=== PATIENT | male | born 1965 | race Hispanic/Latino ===

== ENCOUNTER 2017-11-19 01:51 | Observation (INO) | payer MEDICAID ==
[2017-11-19] MEDS ORDERED: Nitroglycerin 2% Ointment 1 INCH/1 GM Packet ONE (02:00)
[2017-11-19 02:20] LABS: #Basophils 0.1 thou/uL (0.0-0.2); #Eosinphils 0.1 thou/uL (0.0-0.7); #Lymphocytes 1.4 thou/uL (1.20-3.40); #Monocytes 0.3 thou/uL (0.11-0.59); #Neutrophils 1.2 thou/uL (1.40-6.50); %Basophils 1.7 % (0.0-1.0); %Eosinophils 2.5 % (0.0-10.0); %Lymphocytes 46.5 % (21.0-51.0); %Monocytes 8.7 % (0.0-10.0); %Neutrophils 40.6 % (42.0-75.0); Hemoglobin 14.3 g/dL (14.0-18.0); Mean Corpuscular HGB CONC 35.5 g/dL (32.0-36.0); Mean Corpuscular Hemoglobin 33.8 pg (27.0-31.0); Mean Corpuscular Volume 95.4 fl (80.0-94.0); Mean Platelet Volume 8.1 fL (7.4-10.4); Platelet Count 159 thou/uL (130-400); RBC Distribution Width 12.1 % (11.5-14.5); Red Blood Cell (RBC) Count 4.23 mill/uL (4.70-6.10)
[2017-11-19 02:41] LABS: ALT (SGPT) 15 U/L (8-55); AST (SGOT) 18 U/L (5-34); Albumin 4.6 g/dL (3.5-5.0); Alkaline Phosphatase 69 U/L (40-150); Anion Gap 14 mmol/L (10-20); BUN (Urea Nitrogen) 18 mg/dL (8.4-25.7); Bilirubin, Total 2.4 mg/dL (0.2-1.2); Calc. Creatinine Clearance 0 mL/min (70-130); Calcium 9.7 mg/dL (7.8-10.44); Carbon Dioxide 24 mmol/L (22-29); Chloride 106 mmol/L (98-107); Estimated GFR-MDRD 60; Globulin 2.3 g/dL (2.4-3.5); Glucose 142 mg/dL (70-105); Potassium 3.8 mmol/L (3.5-5.1); Protein, Total 6.9 g/dL (6.0-8.3); Sodium 140 mmol/L (136-145)
[2017-11-19 02:44] LABS: CKMB 4.2 ng/mL (0-6.6); Troponin I Less than 0.010 ng/mL (< 0.028)
--- NOTE | 2017-11-19 03:45 | PDOC.FPRHP ---
- History of Present Illness Chief Complaint: chest pain History of Present Illness: 52 yo M w/ PMH of [place] 1-2 years ago & pacemaker comes in for evaluation of chest pain. Patient states he woke up to go to the bathroom and left sided stabbing chest pain developed. It did not radiate, lasted for about 30 minutes and was not associated with diaphoresis. The nothing specific made the pain better or worse. He states the pain feels like the pain he had during his [place]. Patient states he has not taken any of his medications for a few months because of having trouble being seen at the doctor's office. The only medication he remembers taking is plavix. He is in town visiting a friend, he lives in [place]. ED Course: EKG- Ventricular paced trop- negative x1 nitro gel - Allergies/Adverse Reactions Allergies Allergy/AdvReac Type Severity Reaction Status Date / Time No Known Allergies Allergy Verified 11/19/17 04:10 - History PMHx: [place] 1-2 years ago PSHx: pacemaker, cath FHx: father with heart disease in his 40s Social: no smoking, alcohol, or drugs - Review of Systems General: denies: fever/chills, night sweats, fatigue ENT: denies: nasal congestion, rhinorrhea Respiratory: reports: shortness of breath (was SOB during the episode). denies : cough, congestion Cardiovascular: reports: chest pain. denies: palpitation, edema, orthopnea Gastrointestinal: denies: nausea, vomiting, diarrhea, abdominal pain, GI bleeding Genitourinary: denies: dysuria Skin: denies: rashes, itching Musculoskeletal: denies: pain, arthritis/arthralgias Neurological: denies: numbness, weakness Psychological: denies: anxiety, depression - Vital signs BP: 115/80 HR: 83 RR: 18 Tmax: 98.4 Pox: 98% on ra Wt: 75kg - Physical Exam Constitutional: NAD, awake, alert and oriented HEENT: normocephalic and atraumatic, PERRLA, EOMI Neck: supple Heart: RRR, normal S1/S2, other (pacemaker) Lungs: CTAB, no respiratory distress, good air movement Abdomen: soft, non-tender, bowel sounds present Musculoskeletal: normal structure, ROM grossly normal Neurological: no focal deficit, CN II-XII intact Skin: no rash/lesions, capillary refill <2 seconds FMR H&P: Results - Labs Result Diagrams: 11/19/17 02:11 11/19/17 02:11 Lab results: WBC 3.0 thou/uL (4.8-10.8) L 11/19/17 02:11 Hgb 14.3 g/dL (14.0-18.0) 11/19/17 02:11 Hct 40.3 % (42.0-52.0) L 11/19/17 02:11 MCV 95.4 fl (80.0-94.0) H 11/19/17 02:11 Plt Count 159 thou/uL (130-400) 11/19/17 02:11 Neutrophils % 40.6 % (42.0-75.0) L 11/19/17 02:11 Sodium 140 mmol/L (136-145) 11/19/17 02:11 Potassium 3.8 mmol/L (3.5-5.1) 11/19/17 02:11 Chloride 106 mmol/L (98-107) 11/19/17 02:11 Carbon Dioxide 24 mmol/L (22-29) 11/19/17 02:11 BUN 18 mg/dL (8.4-25.7) 11/19/17 02:11 Creatinine 1.25 mg/dL (0.6-1.3) 11/19/17 02:11 Glucose 142 mg/dL (70-105) H 11/19/17 02:11 Calcium 9.7 mg/dL (7.8-10.44) 11/19/17 02:11 Total Bilirubin 2.4 mg/dL (0.2-1.2) H 11/19/17 02:11 AST 18 U/L (5-34) 11/19/17 02:11 ALT 15 U/L (8-55) 11/19/17 02:11 Alkaline Phosphatase 69 U/L (40-150) 11/19/17 02:11 CK-MB (CK-2) 4.2 ng/mL (0-6.6) 11/19/17 02:11 Serum Total Protein 6.9 g/dL (6.0-8.3) 11/19/17 02:11 Albumin 4.6 g/dL (3.5-5.0) 11/19/17 02:11 FMR H&P: A/P - Problem List (1) Chest pain, rule out acute myocardial infarction Current Visit: Yes Status: Acute Code(s): R07.9 - CHEST PAIN, UNSPECIFIED (2) HTN (hypertension) Current Visit: Yes Status: Acute Code(s): I10 - ESSENTIAL (PRIMARY) HYPERTENSION (3) HLD (hyperlipidemia) Current Visit: Yes Status: Acute Code(s): E78.5 - HYPERLIPIDEMIA, UNSPECIFIED (4) Pacemaker Current Visit: Yes Status: Acute Code(s): Z95.0 - PRESENCE OF CARDIAC PACEMAKER - Plan # Chest pain, r/o myocardial ischemia - [place] 1-2 years ago, pacemaker at that time - lisinopril, atorvastatin - stress test 1100 - consult cards - held plavix, BB 2/2 stress vs cath # HTN - lisinopril - hydralazine PRN - high BP in ED # HLD - atorvastatin - check FLP Fluids: NS at 100 ml/hr Diet: NPO Code: full Dispo: <48 hours FMR H&P: Upper Level - Pertinent history 52 yo M with PMH significant for CAD s/p [place] and pacemaker placement, HTN presents to ER with worsening chest pain. States pain is L-sided, substernal in nature, nonradiating. Describes associated SOB with episodes of pain, which remind of when he had his [place] 1-2 years ago. No N/V, diaphoresis, dizziness, lightheadedness. States he ran out of all of his medications a few months ago, only one that he remembers by name is plavix. - Pertinent findings PE: T: 98.4 P: 83 BP: 115/89 RR: 18 98% on RA Gen: [place] male in NAD HEENT: PERRL, EOMI, MMM, no lymphadenopathy or thyromegaly CV: RRR no murmurs, distal pulses intact Pulm: CTAB, no wheezes or rhonchi Abd: soft, NT/ND, BS present, no masses Ext: no cyanosis or edema MSK: SHARIF well, no joint or muscle pain or swelling Neuro: CN 2-12 intact, normal sensation Skin: no rashes or lesions Psych: A&O x3, appropriate in conversation - Plan Date/Time: 11/19/17 0345 52 yo M here with chest pain. 1) Stable angina: Obs on telemetry. Continue to trend cardiac enzymes. EKG shows V-paced rhythm. Consider consulting Cardiology in AM vs stress as he states he had an [place] with pacemaker placed between 1-2 years ago. Restart on ASA and plavix, statin. Hold BB until decision made about stress test. 2) CAD: ASA, statin. Start on ACEi. 3) HTN: As above. I, [Mohinder Wahl], have evaluated this patient and agree with findings/plan as outlined by internet marketing strategist resident. Pertinent changes/additions are listed here.
[2017-11-19] MEDS ORDERED: Enoxaparin Sodium 40 MG/0.4 ML SYRINGE SC SCH (04:12)
[2017-11-19] MEDS ORDERED: Acetaminophen 325 MG TAB PO PRN (04:12)
[2017-11-19] MEDS ORDERED: hydrALAZINE 20 MG/ML VIAL SLOW IVP PRN (04:12)
[2017-11-19] MEDS ORDERED: Ondansetron ODT 4 MG TAB PO PRN (04:12)
[2017-11-19] MEDS ORDERED: Nitroglycerin 0.4 MG TAB (25 Tab Bottle) PO PRN (04:12)
[2017-11-19 04:15] VITALS: BMI 24.8
[2017-11-19] MEDS: Sodium Chloride 0.9% 1,000 ML IV SCH ×2 (04:37→14:40)
[2017-11-19 05:47] LABS: Troponin I Less than 0.010 ng/mL (< 0.028)
[2017-11-19 06:09] LABS: Cardiac Risk 2.8 (Less than 4.5)
--- NOTE | 2017-11-19 08:06 | RAD ---
CHEST 1 VIEW: HISTORY: A 52-year-old male with a history of chest pain, primarily upper left chest. FINDINGS: Left ICD. Monitor leads overlie the chest. Heart size is within normal limits. The lungs are clear of acute process. IMPRESSION: No acute intrathoracic disease. Left ICD. Atherosclerosis of the aorta. POS: NOELLEH
[2017-11-19 09:00] LABS: Troponin I Less than 0.010 ng/mL (< 0.028)
[2017-11-19] MEDS ORDERED: Lisinopril 5 MG TAB PO SCH (09:00)
--- NOTE | 2017-11-19 11:13 | HP ---
I have discussed this case with Dr. Robert Macias. I agree with his assessment and plan. Mr. Jerez is a 52-year-old black male patient with a history of PA and pacemaker, who came in for ch est pain. He awoke to go to the bathroom and developed left-sided stabbing chest pain. It lasted ab out 30 minutes and was unassociated with diaphoresis or shortness of breath. It did, however, feel l yo the pain he had had with his previous PA. He was evaluated in the ER and admitted for further ev aluation. He is currently visiting from [place], [place]. PHYSICAL EXAMINATION: GENERAL: He is awake and alert, in no distress. VITAL SIGNS: His blood pressure is 120/78, his heart rate is 80, respirations 18. He is afebrile. His room air pulse ox is 98%. EARS, NOSE, AND THROAT: No erythema or exudate. CARDIAC: Heart rhythm regular, no gallop or murmur noted. LUNGS: Clear, without rales or wheezes. ABDOMEN: Flat, soft. No guarding, rebound or rigidity. EXTREMITIES: No edema. NEUROLOGIC: No focal deficits. LABORATORY DATA: His CBC shows a white count of 3000, hemoglobin 14.3, hematocrit 40.3 with an MCV o f 95. He has a normal differential. Chemistries: Sodium 140, potassium 3.8, chloride 106, bicarbon ate 24, glucose 142. Total bilirubin slightly elevated at 2.4. Cholesterol was 175, LDL is 97, HDL is 63. Troponins are less than 0.010 x3. EKG, no acute ischemic changes. ASSESSMENT: Chest pain. PLAN: Stress Myoview, proceed based on findings.
--- NOTE | 2017-11-19 15:08 | NM ---
CARDIAC SPECT: CLINICAL HISTORY: 52-year-old male with chest pain, coronary artery disease, hypertension, diabetes, and dyslipidemia. TECHNIQUE: A myocardial perfusion scan was performed using the single isotope one day protocol with technetium-9 9m sestamibi. 9 mCi were injected intravenously for the rest exam followed by 32 mCi for the stress e xam. Pharmacologic stress with Adenosine was monitored and interpreted by Dr. Mccoy. FINDINGS: There is a fixed defect in the distal anteroseptal wall. No reversible defects are seen. GATED SPECT LVEF: 49%. WALL MOTION EXAM: No segmental wall motion abnormalities are seen. IMPRESSION: No evidence of reversible ischemia. POS: ANDI
[2017-11-19] MEDS ORDERED: ADENOSINE 60 MG/20 ML VIAL ONE (15:29)
[2017-11-19 16:15] VITALS: BP 133/83; TEMP 98.3
[2017-11-19] MEDS ORDERED: Atorvastatin Calcium 40 MG TAB PO SCH (21:00)
== END 2017-11-19 17:40 | disposition home or self-care (01) ==
LOC: ERS 01:51 → 2NO 04:00
PROVIDERS: ADMIT Family Medicine; ATTEND Family Medicine
DX: I25.118 Atherosclerotic heart disease of native coronary artery with other forms of angina pectoris (principal); I10 Essential (primary) hypertension; I25.2 Old myocardial infarction; E78.5 Hyperlipidemia, unspecified; Z95.0 Presence of cardiac pacemaker
CPT/HCPCS: 36415; 36416; 71045; 78452; 80053; 80061; 82248; 82553; 84484; 85025; 90471; 90732; 93005; 93017; 94760; 96360; 96361; 96372; A9500; G0009; G0378; J0153; J1650